=== PATIENT | female | born 1960 | race Caucasian/White ===

== ENCOUNTER → 2018-01-03 | Day surgery (SDC) | payer OTHER ==
[~2018-01-03] MED LIST: ACETAMINOPHEN 1000 MG/100 ML 100 ML IV ONE; CEFAZOLIN SOD 1 GM VIAL ONE; DEXAMETHASONE SOD PHOS INJ 4 MG/ML VIAL ONE; FENTANYL CITRATE/PF 100MCG/2 ML INJ ONE; KETOROLAC TROMETHAMINE 30 MG/ML VIAL ONE; LIDOCAINE HCL 2% LOCAL INJ 5 ML SDV VIAL INJ ONE; MIDAZOLAM HCL 2 MG/2 ML VIAL ONE; ONDANSETRON HCL INJ 2 MG/ML VIAL ONE; PROPOFOL IV EMULSION 10 MG/ML 20 ML VIAL ONE; SEVOFLURANE INHAL SOLN 250 ML PEN BTL ONE
--- OUTSIDE RECORDS SUMMARY | 2018-01-03 05:42 | XMS REPORT ---
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 Allergies, Adverse Reactions, Alerts This patient has no known allergies or adverse reactions. Medications This patient has no known medications. Results Test Description Test Time Test Comments Text Results Atomic Results Result Comments MRI KNEE JNT RT WO CLINICAL INDICATION: M23.91 Unspecified internal derangement of right kneeMODALITY: [employer]o 1.5 Carey 18 channel MRITECHNIQUE: Multiplanar multisequence MRI of the right knee was performed .IMPRESSION:1. Posterior root tear of medial meniscus.2. Medial and patellofemoral compartment chondromalacia, detailed below.3. Trace joint effusion.FINDINGS: COMPARISON: none MENISCI: Posterior root tear of medial meniscus is evident. 2.5 mm medial extrusion of the medial meniscus body segment is evident. The lateral meniscus remains intact.CRUCIATE LIGAMENTS: Anterior and posterior cruciate ligaments are intact.COLLATERAL LIGAMENTS: Medial and lateral collateral ligaments are intact.OSSEOUS STRUCTURES AND CARTILAGINOUS SURFACES: No fractures or destructive osseous lesions are seen. Grade 2 chondromalacia involves weightbearing surfaces of the medial femoral condyle and medial tibial plateau. Hyaline cartilage in the lateral compartment appears unremarkable..PATELLOFEMORAL COMPARTMENT: Patellofemoral alignment is normal. Full-thickness cartilage loss is seen at the patellar apex. Grade 4 chondromalacia involves the mid inferior trochlear groove apex.MISCELLANEOUS FINDINGS: Trace joint effusion is present. Trace fluid is present in the gastrocnemius - semimembranosus bursa.
--- NOTE | 2018-01-03 14:14 | Operative Report ---
DATE OF PROCEDURE: January 03, 2018 ELEVATOR SUPERVISOR: Prasanna Abrams PA-C The patient was brought to the operating room for induction of anesthesia. Throughout this case, my PA's assistance was necessary for retraction of soft tissue and positioning of the extremity. This allows for efficient and technically successful execution of the operation and is considered medically necessary. PREOPERATIVE DIAGNOSIS: Right knee medial meniscal tear. 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 PROCEDURES: Right knee arthroscopy, chondroplasty of the patella, and resection of the medial parapatellar plica. INDICATIONS: The patient is a 57-year-old lady who has a long history of right knee pain. The symptoms are mechanical in nature. She has had an MRI, which showed suggestion of a medial meniscal tear. She has been treated with extensive conservative management, but feels the symptoms compromise her quality of life. She would like to proceed with definitive arthroscopy. The risks and benefits were explained. She states she understands and wishes to proceed. DESCRIPTION OF PROCEDURE: The patient was brought to the operating room and placed under general anesthetic. She received prophylactic antibiotics in the holding area. Her right lower extremity was prepped and draped in a sterile manner. A preoperative time out was performed. The extremity had been exsanguinated and a proximal tourniquet was inflated to 300 mmHg. Standard arthroscopy portals were established. The knee was insufflated with sterile saline and systematically inspected. Immediately evident was grade III to grade IV chondromalacia of the undersurface of the patella. The trochlear groove was well preserved with some grade I changes. There was a medial parapatellar plica with a kissing lesion along the medial femoral condyle. There were some grade I to grade II wear of the medial femoral condyle. The medial meniscus was inspected and carefully probed. There was no evidence of a tear. The cruciate ligaments were stable and normal. The lateral compartment showed some minor grade I changes of the lateral tibial plateau. A mechanical shaver was used to perform gentle chondroplasty of the undersurface of the patella and the medial femoral condyle. The medial parapatellar plica was aggressively excised. The knee was thoroughly irrigated. The gutters were inspected and free of any loose bodies. The arthroscopic instruments were removed and the portal incisions were closed with nylon stitches. A sterile bandage was applied. The patient was extubated and transported to the recovery room in stable condition. There was no blood loss and all needle and sponge counts were correct. Job#: [id number] VAS
== END | disposition home or self-care (01) ==
LOC: OR 05:40
PROVIDERS: ATTEND Specialist
DX: M67.51 Plica syndrome, right knee (principal); M22.41 Chondromalacia patellae, right knee; R05 Cough; Z01.810 Encounter for preprocedural cardiovascular examination
CPT/HCPCS: 29875; 93005; J0690; J1100; J1885; J2001; J2250; J2405